=== PATIENT | female | born 1945 | race Caucasian/White ===

== ENCOUNTER 2017-08-30 07:32 | Outpatient (CLI) | payer MEDICARE, OTHER ==
[2017-08-30 10:35] LABS: BASOPHILS % (AUTO) 0.8 %; EOSINOPHILS # (AUTO) 0.2 10^3/uL (0.0-0.7); EOSINOPHILS % (AUTO) 3.3 %; HGB - HEMOGLOBIN 11.4 g/dL (12.0-16.0); LYMPHOCYTES # (AUTO) 1.1 10^3/uL (1.5-3.5); LYMPHOCYTES % (AUTO) 19.8 %; MEAN CORPUSCULAR HEMOGLOBIN 31.7 pg (27.0-31.0); MEAN CORPUSCULAR HGB CONC 33.8 g/dL (32.0-36.0); MEAN CORPUSCULAR VOLUME 93.7 fL (81.0-99.0); MEAN PLATELET VOLUME 9.8 fL (7.9-10.8); MONOCYTES # (AUTO) 0.4 10^3/uL (0.0-1.0); MONOCYTES % (AUTO) 7.6 %; NEUTROPHILS # (AUTO) 3.6 10^3/uL (1.5-6.6); NEUTROPHILS % (AUTO) 68.5 %; PLT - PLATELET COUNT 171 10^3/uL (130-450); RED CELL DISTRIBUTION WIDTH 13.2 % (12.0-15.0); WHITE BLOOD COUNT 5.3 x10^3/uL (4.8-10.8)
[2017-08-30 11:08] LABS: ALBUMIN 3.5 g/dL (3.2-5.5); ALBUMIN/GLOBULIN RATIO 1.3 (1.0-2.2); ALKALINE PHOSPHATASE 40 IU/L (42-121); ALT ALANINE AMINOTRANSFERASE 11 IU/L (10-60); AST ASPARTATE AMINOTRANSFERASE 14 IU/L (10-42); BILIRUBIN,TOTAL 0.7 mg/dL (0.2-1.0); BUN - BLOOD UREA NITROGEN 27 mg/dL (6-20); CALCIUM 9.1 mg/dL (8.5-10.3); CARBON DIOXIDE - CO2 27 mmol/L (21-32); CHLORIDE 104 mmol/L (101-111); CHOL/HDL RATIO 3.4 (<4.4); CHOLESTEROL 157 mg/dL; CREATININE 1.1 mg/dL (0.4-1.0); GFR - MDRD 49 (>89); GLUCOSE 131 mg/dL (70-100); HDL CHOLESTEROL 46 mg/dL; LDL CHOLESTEROL,CALCULATED 98 mg/dL; LDL/HDL RATIO 2.1 (<4.4); SODIUM 139 mmol/L (135-145); TOTAL PROTEIN 6.3 g/dL (6.7-8.2); VLDL CHOLESTEROL 13 mg/dL
[2017-08-30 11:17] LABS: HB2 TOTAL 12.1 g/dL; HEMOGLOBIN A1C 0.54 g/dL; HEMOGLOBIN A1C % 6.2 % (4.6-6.2)
== END 2017-08-30 07:33 | disposition home or self-care (01) ==
LOC: LAB.F 07:32
PROVIDERS: ATTEND Family Medicine
DX: E78.5 Hyperlipidemia, unspecified (principal); E11.9 Type 2 diabetes mellitus without complications; I10 Essential (primary) hypertension
CPT/HCPCS: 36415; 80053; 80061; 83036; 83721; 84443; 85025

== ENCOUNTER 2019-01-18 15:27 | Emergency (ER) | payer MEDICARE, OTHER ==
[2019-01-18 15:38] VITALS: BP 182/90
== END 2019-01-18 16:57 | disposition left against medical advice (07) ==
LOC: ED 15:27
DX: Z53.21 Procedure and treatment not carried out due to patient leaving prior to being seen by health care provider (principal)

== ENCOUNTER 2019-05-17 13:13 | Outpatient (CLI) | payer MEDICARE, OTHER ==
--- NOTE | 2019-05-18 16:48 | XRAY Report ---
Reason: Anesthesia of skin, Numbness of hand Procedure Date: 05/17/2019 Accession Number: [id number] / [id number] Procedure: XR - Shoulder 3 View RT CPT Code: Final Report FULL RESULT: EXAM: RIGHT SHOULDER RADIOGRAPHY EXAM DATE: 05/17/2019 01:35 PM. CLINICAL HISTORY: Neck and right shoulder pain with numbness in the right hand. COMPARISON: None. TECHNIQUE: 3 views. FINDINGS: Bones: No fracture seen. No acute osseous abnormality. Joints: No dislocation seen. Minimal degenerative changes in the glenohumeral joint. Soft tissues: Small amount of calcification in the distal supraspinatus tendon. IMPRESSION: 1. No acute abnormality seen in the shoulder. 2. Minimal degenerative changes. 3. Minimal calcific tendinitis in the rotator cuff. RADIA
--- NOTE | 2019-05-18 19:32 | XRAY Report ---
Reason: ANESTHESIA OF SKIN Procedure Date: 05/17/2019 Accession Number: [id number] / [id number] Procedure: XR - Cervical Spine 2 View CPT Code: Final Report FULL RESULT: EXAM: CERVICAL SPINE RADIOGRAPHY EXAM DATE: 05/17/2019 01:35 PM. CLINICAL HISTORY: Anesthesia of skin. Right shoulder pain with numbness in right hand. COMPARISONS: None. TECHNIQUE: 3 views. FINDINGS: Alignment: Mild degenerative anterolisthesis of C4 on C5 and C7 on T1. Bones: The cervical vertebral bodies and posterior elements are well visualized from the skull base through C7-T1. No fractures or bone lesions. Degenerative Changes: Severe disk level degenerative changes at C5-C6 and C6-C7 with disk height loss and osteophytosis. Severe diffuse facet DJD worst in the mid to upper cervical spine. Soft Tissues: Normal. No prevertebral soft tissue swelling. The visualized lung apices are clear. IMPRESSION: 1. Severe disk level degenerative changes at C5-C6 and C6-C7. 2. Severe diffuse facet DJD, worst in the mid to upper cervical spine RADIA
== END 2019-05-17 13:14 | disposition home or self-care (01) ==
LOC: DI 13:13
PROVIDERS: ATTEND Nurse Practitioner Family
DX: M19.011 Primary osteoarthritis, right shoulder (principal); M75.31 Calcific tendinitis of right shoulder; M50.322 Other cervical disc degeneration at C5-C6 level; M47.812 Spondylosis without myelopathy or radiculopathy, cervical region; M43.12 Spondylolisthesis, cervical region; M43.13 Spondylolisthesis, cervicothoracic region
CPT/HCPCS: 72040

== ENCOUNTER 2019-12-06 12:20 | Outpatient (CLI) | payer MEDICARE, OTHER ==
[2019-12-06 15:32] LABS: HGB - HEMOGLOBIN 13.6 g/dL (12.0-16.0)
[2019-12-06 15:43] LABS: ALBUMIN 4.1 g/dL (3.2-5.5); CALCIUM 9.3 mg/dL (8.5-10.3); CREATININE 1.2 mg/dL (0.4-1.0); PHOSPHORUS 3.6 mg/dL (2.5-4.6); PROTEIN/CREATININE RATIO,URINE 0.1 (<=0.2)
== END 2019-12-06 12:21 | disposition home or self-care (01) ==
LOC: LAB.S 12:20
PROVIDERS: ATTEND Internal Medicine Nephrology
DX: I12.9 Hypertensive chronic kidney disease with stage 1 through stage 4 chronic kidney disease, or unspecified chronic kidney disease (principal); N18.3 Chronic kidney disease, stage 3 (moderate); N39.0 Urinary tract infection, site not specified
CPT/HCPCS: 36415; 80069; 82570; 83970; 84156; 85014; 85018

== ENCOUNTER 2020-10-08 16:57 | Outpatient (CLI) | payer MEDICARE, OTHER ==
--- NOTE | 2020-10-08 17:42 | XRAY Report ---
PROCEDURE: Ribs w/PA Chest LT INDICATIONS: LEFT RIB PAIN TECHNIQUE: 3 views of the left ribs were acquired, along with a single view chest. COMPARISON: None. FINDINGS: Surgical changes and devices: Cholecystectomy clips. Bones and chest wall: No displaced left-sided rib fractures. Chronic appearing right posterior 7-8th rib fractures. No dislocation. No suspicious bony lesions. Overlying soft tissues appear unremarka ble. Lungs and pleura: No pleural effusions or pneumothorax. Lungs appear clear. Mediastinum: Mediastinal contours appear normal. Heart size is normal. Suspect prominent pericardia l fat pad. IMPRESSION: No displaced left-sided rib fracture. Chronic appearing right posterior 7-8th rib fractures. Reviewed by: Barry Villarreal MD on 10/08/2020 5:40 PM PDT Approved by: Barry Villarreal MD on 10/08/2020 5:40 PM PDT Station ID: [id number]
== END 2020-10-08 16:58 | disposition home or self-care (01) ==
LOC: DI.S 16:57
PROVIDERS: ATTEND Nurse Practitioner Family
DX: R07.81 Pleurodynia (principal); S22.32XA Fracture of one rib, left side, initial encounter for closed fracture

== ENCOUNTER 2020-12-24 07:49 | Outpatient (CLI) | payer MEDICARE, OTHER ==
[2020-12-24 15:26] LABS: ALBUMIN/GLOBULIN RATIO 1.7 (1.0-2.2); ALKALINE PHOSPHATASE 43 IU/L (42-121); ALT ALANINE AMINOTRANSFERASE 15 IU/L (10-60); AST ASPARTATE AMINOTRANSFERASE 17 IU/L (10-42); BUN - BLOOD UREA NITROGEN 12 mg/dL (6-20); CALCIUM 8.9 mg/dL (8.5-10.3); CARBON DIOXIDE - CO2 30 mmol/L (21-32); CHLORIDE 96 mmol/L (101-111); CHOL/HDL RATIO 2.8 (<4.4); CHOLESTEROL 190 mg/dL; CREATININE 0.9 mg/dL (0.4-1.0); GFR - MDRD 61 (>89); GLUCOSE 132 mg/dL (70-100); HDL CHOLESTEROL 68 mg/dL; LDL CHOLESTEROL,CALCULATED 102 mg/dL; LDL/HDL RATIO 1.5 (<4.4); POTASSIUM 3.8 mmol/L (3.5-5.0); SODIUM 136 mmol/L (135-145); TOTAL PROTEIN 6.3 g/dL (6.7-8.2); TRIGLYCERIDES 99 mg/dL; VLDL CHOLESTEROL 20 mg/dL
[2020-12-24 15:28] LABS: CREATININE,URINE 16.4 mg/dL; MICROALBUM/CREATININE RATIO,UR 12.2 ug/mg (<30.0); MICROALBUMIN,URINE 0.2 mg/dL (0-300.0)
[2020-12-24 20:03] LABS: ESTIMATED AVERAGE GLUCOSE 128 mg/dL (70-100); HEMOGLOBIN A1c% 6.1 % (4.27-6.07)
== END 2020-12-24 07:50 | disposition home or self-care (01) ==
LOC: LAB.S 07:49
PROVIDERS: ATTEND Family Medicine
DX: I10 Essential (primary) hypertension (principal); E11.9 Type 2 diabetes mellitus without complications; E78.2 Mixed hyperlipidemia; E03.9 Hypothyroidism, unspecified
CPT/HCPCS: 36415; 80053; 80061; 82043; 82570; 83036; 83721; 84443

== ENCOUNTER 2021-02-01 10:43 | Outpatient (CLI) | payer MEDICARE, OTHER ==
[2021-02-01 15:29] LABS: CALCIUM 9.1 mg/dL (8.5-10.3); CREATININE 1.1 mg/dL (0.4-1.0); POTASSIUM 3.3 mmol/L (3.5-5.0)
== END 2021-02-01 10:44 | disposition home or self-care (01) ==
LOC: LAB.S 10:43
PROVIDERS: ATTEND Internal Medicine
DX: I10 Essential (primary) hypertension (principal)
CPT/HCPCS: 36415; 80048

== ENCOUNTER 2021-03-19 09:49 | Outpatient (CLI) | payer MEDICARE, OTHER ==
[2021-03-19 15:09] LABS: ALBUMIN 4.1 g/dL (3.2-5.5); CALCIUM 9.7 mg/dL (8.5-10.3); CREATININE 1.1 mg/dL (0.4-1.0); PHOSPHORUS 3.3 mg/dL (2.5-4.6); POTASSIUM 3.9 mmol/L (3.5-5.0)
[2021-03-19 15:27] LABS: CREATININE,URINE 74.4 mg/dL; MICROALBUMIN,URINE 6.8 mg/dL (0-300.0); PROTEIN/CREATININE RATIO,URINE 0.2 (<=0.2)
== END 2021-03-19 09:50 | disposition home or self-care (01) ==
LOC: LAB.S 09:49
PROVIDERS: ATTEND Internal Medicine Nephrology
DX: N18.31 Chronic kidney disease, stage 3a (principal)
CPT/HCPCS: 36415; 80069; 82043; 82570; 84156

== ENCOUNTER 2021-12-07 08:11 | Outpatient (CLI) | payer MEDICARE, OTHER ==
[2021-12-07 14:29] LABS: ALBUMIN 3.9 g/dL (3.2-5.5); CALCIUM 9.5 mg/dL (8.5-10.3); CREATININE 1.3 mg/dL (0.4-1.0); CREATININE,URINE 128.1 mg/dL; PHOSPHORUS 3.1 mg/dL (2.5-4.6); POTASSIUM 3.7 mmol/L (3.5-5.0); PROTEIN/CREATININE RATIO,URINE 0.1 (<=0.2)
== END 2021-12-07 08:12 | disposition home or self-care (01) ==
LOC: LAB.S 08:11
PROVIDERS: ATTEND Internal Medicine Nephrology
DX: N18.31 Chronic kidney disease, stage 3a (principal)
CPT/HCPCS: 36415; 80069; 82570; 84156

== ENCOUNTER 2022-04-08 10:24 | Outpatient (CLI) | payer MEDICARE, OTHER ==
--- NOTE | 2022-04-08 14:15 | XRAY Report ---
PROCEDURE: Chest 2 View X-Ray INDICATIONS: COUGH TECHNIQUE: 2 view(s) of the chest. COMPARISON: Chest and rib radiographs 10/08/2020 FINDINGS: Surgical changes and devices: Abdominal right upper quadrant metal clips. Lungs and pleura: No pleural effusions or pneumothorax. Lungs are clear. Mediastinum: Mediastinal contours are normal. Heart size is normal. Bones and chest wall: No suspicious bony abnormalities. Soft tissues appear unremarkable. IMPRESSION: No acute cardiopulmonary abnormality. Reviewed by: Alvarez Wood MD on 04/08/2022 2:13 PM PDT Approved by: Alvarez Wood MD on 04/08/2022 2:13 PM PDT Station ID: [id number]
== END 2022-04-08 10:25 | disposition home or self-care (01) ==
LOC: DI.S 10:24
PROVIDERS: ATTEND Physician Assistant
DX: R05.9 Cough, unspecified (principal)

== ENCOUNTER 2022-10-25 07:29 | Outpatient (CLI) | payer MEDICARE, OTHER ==
[2022-10-25 15:03] LABS: ALBUMIN 3.5 g/dL (3.2-5.5); CREATININE 1.1 mg/dL (0.4-1.0); PHOSPHORUS 2.6 mg/dL (2.5-4.6); POTASSIUM 3.8 mmol/L (3.5-5.0)
[2022-10-25 15:12] LABS: CREATININE,URINE 27.8 mg/dL; PROTEIN/CREATININE RATIO,URINE 0.3 (<=0.2)
== END 2022-10-25 07:30 | disposition home or self-care (01) ==
LOC: LAB.S 07:29
PROVIDERS: ATTEND Internal Medicine Nephrology
DX: N18.31 Chronic kidney disease, stage 3a (principal)
CPT/HCPCS: 36415; 80069; 82570; 84156

== ENCOUNTER 2022-11-04 07:21 | Outpatient (CLI) | payer MEDICARE, OTHER ==
[2022-11-04 14:58] LABS: BASOPHILS # (AUTO) 0.1 10^3/uL (0.0-0.1); BASOPHILS % (AUTO) 1.1 %; EOSINOPHILS # (AUTO) 0.1 10^3/uL (0.0-0.7); EOSINOPHILS % (AUTO) 1.7 %; HCT - HEMATOCRIT 40.6 % (37.0-47.0); HGB - HEMOGLOBIN 12.9 g/dL (12.0-16.0); LYMPHOCYTES # (AUTO) 1.6 10^3/uL (1.5-3.5); LYMPHOCYTES % (AUTO) 29.8 %; MEAN CORPUSCULAR HEMOGLOBIN 30.6 pg (27.0-31.0); MEAN CORPUSCULAR HGB CONC 31.8 g/dL (32.0-36.0); MEAN CORPUSCULAR VOLUME 96.4 fL (81.0-99.0); MEAN PLATELET VOLUME 11.3 fL (7.9-10.8); MONOCYTES # (AUTO) 0.4 10^3/uL (0.0-1.0); MONOCYTES % (AUTO) 7.5 %; NEUTROPHILS # (AUTO) 3.2 10^3/uL (1.5-6.6); NEUTROPHILS % (AUTO) 59.5 %; PLT - PLATELET COUNT 241 10^3/uL (130-450); RED BLOOD COUNT 4.21 10^6/uL (4.20-5.40); RED CELL DISTRIBUTION WIDTH 13.5 % (12.0-15.0); WHITE BLOOD COUNT 5.3 x10^3/uL (4.8-10.8)
[2022-11-04 15:40] LABS: THYROID STIMULATING HORMONE 1.64 uIU/mL (0.34-5.60)
[2022-11-04 15:46] LABS: FERRITIN 17.7 ng/mL (11.0-306.8)
[2022-11-04 15:55] LABS: CREATININE,URINE 22.6 mg/dL; MICROALBUM/CREATININE RATIO,UR 39.8 ug/mg (<30.0); MICROALBUMIN,URINE 0.9 mg/dL (0-300.0)
[2022-11-04 16:19] LABS: ALBUMIN 3.8 g/dL (3.2-5.5); ALBUMIN/GLOBULIN RATIO 1.4 (1.0-2.2); ALKALINE PHOSPHATASE 45 IU/L (42-121); ALT ALANINE AMINOTRANSFERASE 11 IU/L (10-60); AST ASPARTATE AMINOTRANSFERASE 16 IU/L (10-42); BILIRUBIN,TOTAL 0.6 mg/dL (0.2-1.0); BUN - BLOOD UREA NITROGEN 21 mg/dL (6-20); CALCIUM 9.4 mg/dL (8.5-10.3); CARBON DIOXIDE - CO2 29 mmol/L (21-32); CHLORIDE 96 mmol/L (101-111); CHOL/HDL RATIO 3.5 (<4.4); CHOLESTEROL 234 mg/dL; GFR - MDRD 53 (>89); GLUCOSE 150 mg/dL (70-100); HDL CHOLESTEROL 66 mg/dL; LDL CHOLESTEROL,CALCULATED 150 mg/dL; LDL/HDL RATIO 2.3 (<4.4); POTASSIUM 3.9 mmol/L (3.5-5.0); SODIUM 134 mmol/L (135-145); TOTAL PROTEIN 6.6 g/dL (6.7-8.2); TRIGLYCERIDES 90 mg/dL; VLDL CHOLESTEROL 18 mg/dL
[2022-11-04 20:59] LABS: ESTIMATED AVERAGE GLUCOSE 151 mg/dL (70-100); HEMOGLOBIN A1c% 6.9 % (4.27-6.07)
== END 2022-11-04 07:22 | disposition home or self-care (01) ==
LOC: LAB.S 07:21
PROVIDERS: ATTEND Internal Medicine
DX: E11.9 Type 2 diabetes mellitus without complications (principal); Z79.899 Other long term (current) drug therapy
CPT/HCPCS: 36415; 80053; 80061; 82043; 82570; 82607; 82728; 83036; 83721; 84443; 85025

== ENCOUNTER 2023-02-15 07:58 | Outpatient (CLI) | payer MEDICARE, OTHER ==
[2023-02-15 15:50] LABS: ALBUMIN 4.3 g/dL (3.2-5.5); BILIRUBIN,TOTAL 0.7 mg/dL (0.2-1.0); CALCIUM 9.9 mg/dL (8.5-10.3); CREATININE 1.1 mg/dL (0.6-1.3); POTASSIUM 3.8 mmol/L (3.5-4.5); TOTAL PROTEIN 6.5 g/dL (6.4-8.9)
[2023-02-15 16:12] LABS: FERRITIN 14.3 ng/mL (11.0-306.8)
[2023-02-15 20:21] LABS: ESTIMATED AVERAGE GLUCOSE 143 mg/dL (70-100); HEMOGLOBIN A1c% 6.6 % (4.27-6.07)
== END 2023-02-15 07:59 | disposition home or self-care (01) ==
LOC: LAB.S 07:58
PROVIDERS: ATTEND Internal Medicine
DX: Z79.899 Other long term (current) drug therapy (principal); N81.85 Cervical stump prolapse; I49.3 Ventricular premature depolarization; E11.9 Type 2 diabetes mellitus without complications; Z78.0 Asymptomatic menopausal state; E78.5 Hyperlipidemia, unspecified; I10 Essential (primary) hypertension
CPT/HCPCS: 36415; 80053; 82728; 83036

== ENCOUNTER 2023-05-15 07:18 | Outpatient (CLI) | payer MEDICARE, OTHER ==
[2023-05-15 14:35] LABS: BASOPHILS # (AUTO) 0.1 10^3/uL (0.0-0.1); BASOPHILS % (AUTO) 0.7 %; EOSINOPHILS # (AUTO) 0.1 10^3/uL (0.0-0.7); EOSINOPHILS % (AUTO) 0.9 %; HCT - HEMATOCRIT 40.7 % (37.0-47.0); HGB - HEMOGLOBIN 12.7 g/dL (12.0-16.0); LYMPHOCYTES # (AUTO) 1.9 10^3/uL (1.5-3.5); LYMPHOCYTES % (AUTO) 27.6 %; MEAN CORPUSCULAR HEMOGLOBIN 31.2 pg (27.0-31.0); MEAN CORPUSCULAR HGB CONC 31.2 g/dL (32.0-36.0); MEAN PLATELET VOLUME 11.2 fL (7.9-10.8); MONOCYTES # (AUTO) 0.5 10^3/uL (0.0-1.0); MONOCYTES % (AUTO) 7.3 %; NEUTROPHILS # (AUTO) 4.3 10^3/uL (1.5-6.6); NEUTROPHILS % (AUTO) 63.2 %; PLT - PLATELET COUNT 200 10^3/uL (130-450); RED BLOOD COUNT 4.07 10^6/uL (4.20-5.40); RED CELL DISTRIBUTION WIDTH 13.9 % (12.0-15.0); WHITE BLOOD COUNT 6.7 x10^3/uL (4.8-10.8)
[2023-05-15 15:17] LABS: ALBUMIN 4.1 g/dL (3.2-5.5); CHOLESTEROL 193 mg/dL; HDL CHOLESTEROL 64 mg/dL; LDL CHOLESTEROL,CALCULATED 111 mg/dL; LDL/HDL RATIO 1.7 (<4.4); TRIGLYCERIDES 92 mg/dL (48-352); VLDL CHOLESTEROL 18 mg/dL
[2023-05-15 15:26] LABS: CREATININE,URINE 29.8 mg/dL; PROTEIN/CREATININE RATIO,URINE 0.5 (<=0.2)
[2023-05-15 15:26] LABS: CREATININE,URINE 29.8 mg/dL; MICROALBUM/CREATININE RATIO,UR 127.5 ug/mg (<30.0); MICROALBUMIN,URINE 3.8 mg/dL
[2023-05-15 15:33] LABS: ALBUMIN/GLOBULIN RATIO 2.2 (1.0-2.2); ALKALINE PHOSPHATASE 40 IU/L (42-121); ALT ALANINE AMINOTRANSFERASE 10 IU/L (10-60); AST ASPARTATE AMINOTRANSFERASE 15 IU/L (10-42); BILIRUBIN,TOTAL 0.6 mg/dL (0.2-1.0); BUN - BLOOD UREA NITROGEN 15 mg/dL (6-20); CALCIUM 9.2 mg/dL (8.5-10.3); CARBON DIOXIDE - CO2 26 mmol/L (21-32); CHLORIDE 105 mmol/L (101-111); CREATININE 1.1 mg/dL (0.6-1.3); GFR - MDRD 48 (>89); GLUCOSE 113 mg/dL (74-104); POTASSIUM 4.5 mmol/L (3.5-4.5); SODIUM 136 mmol/L (135-145)
[2023-05-15 21:21] LABS: ESTIMATED AVERAGE GLUCOSE 131 mg/dL (70-100); HEMOGLOBIN A1c% 6.2 % (4.27-6.07)
== END 2023-05-15 07:19 | disposition home or self-care (01) ==
LOC: LAB.S 07:18
PROVIDERS: ATTEND Internal Medicine
DX: I12.9 Hypertensive chronic kidney disease with stage 1 through stage 4 chronic kidney disease, or unspecified chronic kidney disease (principal); E11.22 Type 2 diabetes mellitus with diabetic chronic kidney disease; N18.31 Chronic kidney disease, stage 3a; E78.5 Hyperlipidemia, unspecified
CPT/HCPCS: 36415; 80053; 80061; 82043; 82570; 83036; 83721; 84100; 84156; 85025

== ENCOUNTER 2023-08-23 20:56 | Outpatient (CLI) | payer MEDICARE, OTHER | END 2023-08-23 20:57 | disposition critical access hospital (66) | LOC: EMS 20:56 | DX: R20.0 Anesthesia of skin (principal); H53.8 Other visual disturbances; R42 Dizziness and giddiness; R26.81 Unsteadiness on feet | CPT/HCPCS: A0425; A0427 ==

== ENCOUNTER 2023-08-23 21:33 | Inpatient (IN) | payer MEDICARE, OTHER ==
--- NOTE | 2023-08-23 21:44 | ED Physician Documentation ---
PD HPI FOCAL NEURO - Stated complaint Stated Complaint: L HAND NUMBNESS - Chief complaint Chief Complaint: Neuro - History obtained from History obtained from: Patient - Additional information Additional information: 78-year-old woman who is relatively healthy developed a bright lancinating vision in her right eye at 630 while sitting at her computer followed by numbness of the left hand. The brightness in her right eye was very fleeting but the numbness of her left hand continues but is improving. No history of stroke. No headache. Took 2 full size ASA at home. PD PAST MEDICAL HISTORY - Present Medications Home Medications: Ambulatory Orders Medication Instructions Recorded Confirmed Carisoprodol [Soma] 350 mg PO TID 08/23/23 08/23/23 Cholecalciferol [Vitamin D3] 1 cap PO DAILY 08/23/23 08/23/23 Empagliflozin [Jardiance] 10 mg PO DAILY 08/23/23 08/23/23 Famotidine 10 mg PO BID 08/23/23 08/23/23 Losartan [Cozaar] 50 mg PO BID 08/23/23 08/23/23 Metformin HCl [Metformin ER 500 mg PO BID 08/23/23 08/23/23 Osmotic] Omeprazole Magnesium [Prilosec] 10 mg PO DAILY 08/23/23 08/23/23 Vitamin K2 (Mk-4) [Vitamin K2 100 mcg PO DAILY 08/23/23 08/23/23 (Menaquinone-4)] - Allergies Allergies/Adverse Reactions: Allergies Allergy/AdvReac Type Severity Reaction Status Date / Time Penicillins Allergy Edema Verified 08/23/23 21:51 Sulfa (Sulfonamide Allergy Edema Verified 08/23/23 21:51 Antibiotics) PD ED PE NORMAL - Vitals Vital signs reviewed: Yes - General General: Alert and oriented X 3, No acute distress - HEENT HEENT: PERRL, EOMI - Neck Neck: Supple, no meningeal sign, No bony TTP - Cardiac Cardiac: RRR, No murmur - Respiratory Respiratory: No respiratory distress, Clear bilaterally - Abdomen Abdomen: Non tender - Derm Derm: No rash - Neuro Neuro: Alert and oriented X 3, No motor deficit, No sensory deficit, Normal speech, Other (She has mild numbness mostly in the ulnar distribution of the left hand but does also include the thumb. It is all on the palm. No numbness on the dorsum of the hand either side.) Eye Opening: Spontaneous Motor: Obeys Commands Verbal: Oriented GCS Score: 15 NIHSS - Time Time: 21:40 - Level of Consciousness Level of consciousness: (0) Alert, Keenly responsive LOC Questions: (0) Answers both Q's correct LOC Commands: (0) Performs both correctly - Gaze Best Gaze: (0) Normal - Visual Visual: (0) No loss - Facial Palsy Facial Palsy: (0) Normal, symmetrical movement - Motor Arms (both separate) Motor Arm (right): (0) No drift Motor Arm (left): (0) No drift - Motor Legs (both separate) Motor Leg (right): (0) No drift Motor Leg (left): (0) No drift - Limb Ataxia Limb Ataxia: (0) Absent - Sensory Sensory: (1) Dgdh-mx-fnoyepsp loss - Best Language Best Language: (0) No aphasia - Dysarthria Dysarthria: (0) Normal - Extinction and Inattention (formally neg Extinction and inattention: (0) No abnormality - Total Score/Results Total Score/Result: 1 Results - Vitals Vitals: Vital Signs - 24 hr 08/23/23 08/23/23 21:31 22:30 Temperature 36.0 C L Heart Rate 70 75 Respiratory 16 18 Rate Blood Pressure 176/71 H 162/80 H O2 Saturation 100 99 Oxygen O2 Source Room air - EKG (time done) 2216 EKG releavant findings:: EKG personally interpreted by author of this note. Relevant findings are: Rate: Rate (enter#) (75) Rhythm: NSR [place]: Normal QRS: Low voltage Ischemia: Non specific changes Computer interpretation: Agree with computer - Labs Labs: Laboratory Tests 08/23/23 08/23/23 08/23/23 21:45 22:15 22:15 WBC 5.6 RBC 4.61 Hgb 13.9 Hct 43.5 MCV 94.4 MCH 30.2 MCHC 32.0 RDW 12.9 Plt Count 154 MPV 11.5 H Neut # (Auto) 3.0 Lymph # (Auto) 2.0 [place] # (Auto) 0.5 Eos # (Auto) 0.1 Baso # (Auto) 0.0 Absolute Nucleated RBC 0.00 Nucleated RBC % 0.0 PT 9.7 L INR 0.9 Sodium 136 Potassium 4.3 Chloride 102 Carbon Dioxide 27 Anion Gap 7.0 BUN 17 Creatinine 1.1 Estimated GFR (MDRD) 48 L Glucose 142 H Calcium 9.7 Total Bilirubin 0.4 AST 18 ALT 10 Alkaline Phosphatase 47 Total Protein 6.6 Albumin 4.2 Globulin 2.4 Albumin/Globulin Ratio 1.8 Lipase 47 PD Medical Decision Making - ED course ED course: Spoke with Dr Garcia telestroke at 9:57pm agrees with usual stroke w/u, but given v mild sx and improvement, no tnk. Subsequently he did call me back and has looked at the angiography images and the patient does have severe right carotid disease. Recommended dual antiplatelet therapy, noting she had aspirin at home and I loaded her with 300 mg of Plavix. He also recommends permissive hypertension and some gentle hydration. I queried if she needed urgent surgery on her carotid and he said no. He recommended admission here for MRI and observation and I noted in our di scussion that we do not have vascular and he was okay with that. He said urgent surgery is not indicated but she does need to follow-up closely with vascular surgery after discharge. Telehealth consultation placed at 10:[address] Ac for observation at 10:52 PM. Departure - Departure Disposition: ED Place in Observation Clinical Impression: Stroke-like symptoms Condition: Serious Forms: PCP List
[2023-08-23 21:55] LABS: BASOPHILS % (AUTO) 0.7 %; EOSINOPHILS # (AUTO) 0.1 10^3/uL (0.0-0.7); EOSINOPHILS % (AUTO) 1.4 %; HCT - HEMATOCRIT 43.5 % (37.0-47.0); HGB - HEMOGLOBIN 13.9 g/dL (12.0-16.0); LYMPHOCYTES % (AUTO) 35.9 %; MEAN CORPUSCULAR HEMOGLOBIN 30.2 pg (27.0-31.0); MEAN CORPUSCULAR VOLUME 94.4 fL (81.0-99.0); MEAN PLATELET VOLUME 11.5 fL (7.9-10.8); MONOCYTES # (AUTO) 0.5 10^3/uL (0.0-1.0); MONOCYTES % (AUTO) 8.7 %; NEUTROPHILS % (AUTO) 52.9 %; PLT - PLATELET COUNT 154 10^3/uL (130-450); RED BLOOD COUNT 4.61 10^6/uL (4.20-5.40); RED CELL DISTRIBUTION WIDTH 12.9 % (12.0-15.0); WHITE BLOOD COUNT 5.6 x10^3/uL (4.8-10.8)
[2023-08-23] MEDS: iohexoL-300 100 ML VIAL IVP ONE (22:13)
--- NOTE | 2023-08-23 22:29 | CT Report ---
PROCEDURE: Head W/O Stroke Protocol INDICATIONS: Neuro deficit, acute, stroke suspected TECHNIQUE: Noncontrast 4.5 mm thick angled axial sections acquired from the foramen magnum to the vertex, with c oronal reformats. For radiation dose reduction, the following was used: automated exposure control, adjustment of mA and/or kV according to patient size. COMPARISON: None. FINDINGS: Image quality: Excellent. CSF spaces: Basal cisterns are patent. No extra-axial fluid collections. Ventricles are normal in size and shape. Brain: No midline shift. No intracranial masses or hemorrhage. Pedersen-white matter interface is norm al. Skull and face: Calvarium and visualized facial bones are intact, without suspicious lesions. Sinuses: Visualized sinuses and mastoids are clear. IMPRESSION: No acute intracranial abnormality. Findings were discussed with the referring physician, Dr. Medina, by telephone on 08/23/2023 at 10:27 PM. This study fulfills neurological imaging criteria for inclusion or exclusion of acute stroke therapie s based on available published neurological imaging guidelines. Reviewed by: Alvarez Sotomayor MD on 08/23/2023 10:27 PM PDT Approved by: Alvarez Sotomayor MD on 08/23/2023 10:27 PM PDT Station ID: [id number]
[2023-08-23 22:30] LABS: INR 0.9 (0.8-1.2); PT - PROTHROMBIN TIME 9.7 secs (9.9-12.6)
[2023-08-23] MEDS: SODIUM CHLORIDE 0.9% 1,000 ML IV STA (22:39)
[2023-08-23] MEDS: CLOPIDOGREL 300 MG TABLET PO STA (22:39)
--- NOTE | 2023-08-23 22:43 | CT Report ---
PROCEDURE: Angio Head/Neck INDICATIONS: cva sx TECHNIQUE: After the administration of intravenous contrast, 1 mm thick sections acquired from the aortic arch t hrough the [place] of [place]. 3-dimensional encaiyu-wiyzmclmk-rwqumbhqst (MIP) and/or volume renderin g reformats were acquired of the central intracranial vasculature and neck separately. For radiation dose reduction, the following was used: automated exposure control, adjustment of mA and/or kV acco rding to patient size. CONTRAST: COMPARISON: None. FINDINGS: Image quality: Diagnostic. HEAD CT: CSF Spaces: Basal cisterns are patent. No extra-axial fluid collections. Ventricles are normal in size and shape. Brain: The brain is within normal limits for age and scanning technique. Skull and face: Calvarium and visualized facial bones appear intact, without suspicious lesions. Sinuses: Visualized sinuses and mastoids are clear. HEAD CT ANGIOGRAPHY: Anterior circulation: There is suspected occlusion of the cavernous segment of the left internal agrawal tid artery with reconstitution at the level of the ophthalmic artery origin due to collateral flow. T he left internal carotid artery demonstrates mild atherosclerotic calcifications without hemodynamica lly significant stenosis. The flow within the paired anterior cerebral arteries is normal and symmetr ic. The flow within the middle cerebral arteries is normal and symmetric. The anterior communicatin g artery is seen. No aneurysms are seen. Posterior circulation: Short segment of atherosclerotic plaque is seen at the intracranial portion of the right vertebral artery without hemodynamically significant stenosis. Visualized portions of the vertebral arteries demonstrate normal caliber, and join to form a normal appearing basilar artery. F low within the posterior cerebral arteries is normal and symmetric. No aneurysms are seen. NECK CT ANGIOGRAPHY: Carotid system: The great vessels demonstrate a conventional anatomy as they arise from the aortic a rch. The origins of the common carotid arteries appear patent. The common carotid arteries demonstr ate normal caliber and courses. Calcified and noncalcified atherosclerotic plaque is seen at the righ t carotid bifurcation with focal high-grade stenosis of the right internal carotid artery at the orig in. Left carotid bifurcation demonstrates mild atherosclerotic plaque without hemodynamically signifi cant stenosis. Posterior circulation: The origins of the vertebral arteries both appear widely patent. Mild narrowi ng of the left vertebral artery at the level of the C6 transverse foramen secondary to osteophyte for mation. The more superior extracranial portions of both vertebral arteries also demonstrate normal co urses and calibers. They join to form a normal appearing basilar artery. Soft tissues: Visualized neck soft tissues demonstrate no suspicious abnormalities. Bones: No suspicious bony lesions. Visualized cervical spine appears normally aligned. 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 There is distal contrast opacification related to the contralateral flow via a patent anterior com municating artery. 2.Focal greater than 70% stenosis at the right internal carotid artery at the origin. The estimate of stenosis included in the report of the imaging study was calculated using the NASCET method Reviewed by: Alvarez Sotomayor MD on 08/23/2023 10:42 PM PDT Approved by: Alvarez Sotomayor MD on 08/23/2023 10:42 PM PDT Station ID: [id number]
[2023-08-23 22:49] LABS: ALBUMIN 4.2 g/dL (3.2-5.5); ALBUMIN/GLOBULIN RATIO 1.8 (1.0-2.2); BILIRUBIN,TOTAL 0.4 mg/dL (0.2-1.0); CALCIUM 9.7 mg/dL (8.5-10.3); CREATININE 1.1 mg/dL (0.6-1.3); POTASSIUM 4.3 mmol/L (3.5-4.5); TOTAL PROTEIN 6.6 g/dL (6.4-8.9)
[2023-08-23] MEDS ORDERED: SODIUM CHLORIDE FLUSH 0.9% 10 ML SYRINGE IVP PRN (22:52)
[2023-08-23] MEDS: ONDANSETRON 4 MG/2 ML VIAL IVP PRN (23:17)
--- NOTE | 2023-08-23 23:22 | HISTORY & PHYSICAL EXAMINATION ---
Chief Complaint - Chief Complaint Chief Complaint: Numbness in left arm History of Present Illness - History of Present Illness HPI Comment/Other: 78 Y old female with PMH HTN, DM 2, BIBA due to symptoms of flashing light in right eye and numbness in left arm which started about 5: 30 pm. Denies weakness, RUELAS, slurred speech, aphasia, urinary or fecal incontinence, or seizure like activity. On presentation, pt was afebrile and hypertensive Labs showed normal WBC CT head showed no acute intracranial abnormalities CTA neck showed occlusion of right carotid artery As per ER physician, Stroke alert was called. Pt is not TPA candidate. 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 HEENT: reports: Tonsil/Adenoidectomy - POLST Patient has POLST: No Meds/Allgy - Home Medications Home Medications: Ambulatory Orders Medication Instructions Recorded Confirmed Carisoprodol [Soma] 350 mg PO TID 08/23/23 08/23/23 Cholecalciferol [Vitamin D3] 1 cap PO DAILY 08/23/23 08/23/23 Empagliflozin [Jardiance] 10 mg PO DAILY 08/23/23 08/23/23 Famotidine 10 mg PO BID 08/23/23 08/23/23 Losartan [Cozaar] 50 mg PO BID 08/23/23 08/23/23 Metformin HCl [Metformin ER 500 mg PO BID 08/23/23 08/23/23 Osmotic] Omeprazole Magnesium [Prilosec] 10 mg PO DAILY 08/23/23 08/23/23 Vitamin K2 (Mk-4) [Vitamin K2 100 mcg PO DAILY 08/23/23 08/23/23 (Menaquinone-4)] - Allergies Allergies/Adverse Reactions: Allergies Allergy/AdvReac Type Severity Reaction Status Date / Time Penicillins Allergy Edema Verified 08/23/23 21:51 Sulfa (Sulfonamide Allergy Edema Verified 08/23/23 21:51 Antibiotics) Review of Systems - Other Findings Other Findings: 10 point systems were reviewed and were negative except mentioned in HPI Exam - Vital Signs Vital Signs: Vital Signs x48h Temp Pulse Resp BP Pulse Ox 08/23/23 22:30 75 18 162/80 H 99 08/23/23 21:31 36.0 C L 70 16 176/71 H 100 - Physical Exam General Appearance: positive: No acute distress Eyes Bilateral: positive: Normal inspection ENT: positive: ENT inspection nml Neck: positive: Nml inspection Respiratory: positive: Chest non-tender, Breath sounds nml Cardiovascular: positive: Regular rate & rhythm Abdomen: positive: Non-tender, Nml bowel sounds Skin: positive: No rash Extremities: positive: No pedal edema Neurologic/Psychiatric: positive: Oriented x3, Motor nml Conclusion/Plan - Lab Results Fish Bones: 08/23/23 21:45 08/23/23 22:15 - Other Other Results/Comments: A: TIA/ CVA Occlusion of right carotid artery HTN DM2 Hyperlipidemia Plan; Admit in tele Echo MRI brain WO contrast Start aspirin 325 mg po qd Plavix 75 mg po qd Lipitor 80 mg po qd Check fasting lipid panel NPO ST/PT/OT Allow permissive BP per neuro Tele neuro rec outpatient follow up with vascular surgery Hold metformin Start sliding scale insulin DVT prophylaxic: SCD Full code Pt is admitted as inpateint as more than 2 midnight stay is expacted
[2023-08-24] MEDS: SODIUM CHLORIDE FLUSH 0.9% 10 ML SYRINGE IVP SCH (01:18)
[2023-08-24] MEDS: INSULIN REGULAR HUMAN 300 UNIT/3 ML VIAL SUBQ SCH (01:19)
[2023-08-24 06:39] LABS: CHOL/HDL RATIO 2.8 (<4.4); CHOLESTEROL 175 mg/dL; HDL CHOLESTEROL 62 mg/dL; LDL CHOLESTEROL,CALCULATED 100 mg/dL; LDL/HDL RATIO 1.6 (<4.4); TRIGLYCERIDES 65 mg/dL (48-352); VLDL CHOLESTEROL 13 mg/dL
[2023-08-24] MEDS: ATORVASTATIN 40 MG TABLET PO SCH (08:56)
[2023-08-24] MEDS: CLOPIDOGREL 75 MG TABLET PO SCH (08:56)
[2023-08-24] MEDS: ASPIRIN 325 MG TABLET PO SCH (08:56)
[2023-08-24] MEDS: ACETAMINOPHEN 325 MG TABLET PO PRN (10:04)
--- NOTE | 2023-08-24 10:30 | MRI Report ---
PROCEDURE: Brain WO INDICATIONS: cva TECHNIQUE: Noncontrast axial T1 spin echo, axial T2 fast spin echo, sagittal and axial FLAIR, coronal T2 fast sp in echo, axial gradient echo, axial diffusion and ADC through the brain. COMPARISON: CTA 08/22/2022. FINDINGS: Image quality: Excellent. CSF Spaces: Basal cisterns are patent. No extra-axial fluid collections. Ventricles are normal in size and shape. Brain: No intracranial masses or hemorrhage. Pedersen/white matter interface is normal. Brainstem appe ars normal. Scattered regions of restricted diffusion within the right cerebral tissue, best apprecia ruiz on diffusion series 12. This includes the anterior right frontal lobe, right parietal lobe, right temporal lobe and right occipital lobe. There is very mild T2 hyperintense signal corresponding to these regions. Normal intravascular flow voids are present. Skull and face: Calvarium has normal marrow signal. Orbits appear normal. Sinuses: Sinuses and mastoids are clear. IMPRESSION: Late acute, multifocal infarct of the right cerebral tissue. Findings favor embolic etiology. Reviewed by: Nate Ureña MD on 08/24/2023 10:29 AM PDT Approved by: Nate Ureña MD on 08/24/2023 10:29 AM PDT Station ID: [id number]
--- NOTE | 2023-08-24 14:38 | DISCHARGE SUMMARY ---
"Discharge Summary Admit Date: 08/23/23 Discharge Date: 08/24/23 Discharging Provider: Zulema Quinn MD Primary Care Provider: Nelly Bangura MD Code Status: Attempt Resuscitation Condition at Discharge: Serious Discharge Disposition: 02 Transfer Acute Care Hosp - DIAGNOSES Discharge Diagnoses with Status of Each Condition: 1. Multiple embolic strokes, right brain 2. Carotid stenosis 3. Hypertension 4. Type 2 diabetes mellitus 5. GERD 6. Chronic kidney disease - HPI History of Present Illness: 78 Y old female with PMH HTN, DM 2, BIBA due to symptoms of flashing light in right eye and numbness in left arm which started about 5: 30 pm. Denies weakness, RUELAS, slurred speech, aphasia, urinary or fecal incontinence, or seizure like activity. On presentation, pt was afebrile and hypertensive Labs showed normal WBC CT head showed no acute intracranial abnormalities CTA neck showed occlusion of right carotid artery As per ER physician, Stroke alert was called. Pt is not TPA candidate. 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 Head CT without acute intracranial abnormality. 2. Angiography CT head the head with occlusion of the cavernous segment of the distal right internal carotid artery. Distal contrast opacification related to the contralateral flow via patent anterior communicating artery. Greater than 70% stenosis of the right internal carotid artery at the origin. 3. Brain MRI with multifocal infarcts of the right cerebral tissue involving anterior right frontal lobe, right parietal lobe, right temporal lobe, and right occipital lobe Echo with bubble study done. There is no preliminary report in the EMR yet. Echo is sent to [facility] cardiology. They will read the echo and submit it to us. - HOSPITAL COURSE Hospital Course: The patient had complete resolution of her symptoms which were minimal to begin with. The MRI report was startling at the amount of disease with the lack of symptomatology on the patient's part. She is ambulating in the room, without any assist. She is getting up to the bathroom on her own. Standing at the sink washing her hands. She is speaking normally. There is no ataxia, no facial droop, no dysesthesias. Is a very active lady. She still gardens, drives, takes care of her own house and bills, etc. Patient's best friend and son are at the bedside. I have shared with them the findings of the MRI and her angiography. I have spoken to [place] vascular group and they do feel the patient could warrant an evaluation. They asked the hospitalist group to admit. I then spoke to the hospitalist on-call for [facility] and has accepted the patient for transfer. She is transferred to [facility] in stable condition. Temperature is 37.1. Heart rate 67. Telemetry has not revealed any atrial fibrillation. Blood pressure 147/69. Respirations 18. 91% to 96% on room air. She is an alert oriented elderly female who looks younger than her stated age. She is 5 foot 3 inches tall, 75 kg. She has no facial asymmetry, no dysarthria, no dysphagia. Neck is supple. No bruit audible.Lungs are clear to auscultation and percussion. She has a regular rate and rhythm. No murmur. The abdomen is soft, nontender, normal bowel sounds, no masses. The extremities have no edema. This patient is able to go from supine to sitting, sitting to standing, and standing to ambulation without any assist. There is no ataxia. There is no focal loss of strength. There is no facial droop. Greater than 30 minutes was spent coordinating discharge between multiple calls to [facility], discussing the case with the family. Of note, her son Niranjan is her DPOA and POA. He is at the bedside. This document was made in part using voice recognition software. While efforts are made to proofread this document, sound alike and grammatical errors may occur. - ALLERGIES Allergies/Adverse Reactions: Allergies Allergy/AdvReac Type Severity Reaction Status Date / Time Penicillins Allergy Edema Verified 08/23/23 21:51 Sulfa (Sulfonamide Allergy Edema Verified 08/23/23 21:51 Antibiotics) - MEDICATIONS Home Medications: Ambulatory Orders Medication Instructions Recorded Confirmed Carisoprodol [Soma] 350 mg PO TID 08/23/23 Cholecalciferol [Vitamin D3] 1 cap PO DAILY 08/23/23 08/23/23 Empagliflozin [Jardiance] 10 mg PO DAILY 08/23/23 08/23/23 Famotidine 10 mg PO BID 08/23/23 08/23/23 Losartan [Cozaar] 50 mg PO BID 08/23/23 08/23/23 Metformin HCl [Metformin ER 500 mg PO BID 08/23/23 08/23/23 Osmotic] Omeprazole Magnesium [Prilosec] 10 mg PO DAILY 08/23/23 08/23/23 Vitamin K2 (Mk-4) [Vitamin K2 100 mcg PO DAILY 08/23/23 08/23/23 (Menaquinone-4)] - LABS Result Diagrams: 08/23/23 21:45 08/23/23 22:15"
[2023-08-24 15:23] VITALS: O2SAT 97
[2023-08-24 16:29] VITALS: BP 165/77
== END 2023-08-24 17:00 | disposition short-term general hospital (02) | DRG 66 ==
LOC: EDUNIT# → ED 21:33 → MS2 22:52
PROVIDERS: ADMIT Internal Medicine; ATTEND Specialist
DX: I63.40 Cerebral infarction due to embolism of unspecified cerebral artery (principal); R20.0 Anesthesia of skin; H53.9 Unspecified visual disturbance; R29.701 NIHSS score 1; I10 Essential (primary) hypertension; Z79.84 Long term (current) use of oral hypoglycemic drugs; I65.21 Occlusion and stenosis of right carotid artery; E78.5 Hyperlipidemia, unspecified; E11.22 Type 2 diabetes mellitus with diabetic chronic kidney disease; I12.9 Hypertensive chronic kidney disease with stage 1 through stage 4 chronic kidney disease, or unspecified chronic kidney disease; N18.9 Chronic kidney disease, unspecified
CPT/HCPCS: 36415; 70450; 70496; 70498; 70551; 80053; 80061; 83690; 85025; 85610; 93005; 93307; 99285; A9270; Q9967; 83721

== ENCOUNTER 2023-09-08 08:23 | Outpatient (CLI) | payer MEDICARE, OTHER ==
[2023-09-08 17:03] LABS: FERRITIN 59.6 ng/mL (11.0-306.8)
[2023-09-08 17:10] LABS: ALBUMIN 3.7 g/dL (3.2-5.5); ALBUMIN/GLOBULIN RATIO 1.5 (1.0-2.2); BILIRUBIN,TOTAL 0.5 mg/dL (0.2-1.0); CALCIUM 9.3 mg/dL (8.5-10.3); CREATININE 1.1 mg/dL (0.6-1.3); POTASSIUM 3.5 mmol/L (3.5-4.5); TOTAL PROTEIN 6.1 g/dL (6.4-8.9)
[2023-09-08 17:15] LABS: CREATININE,URINE 111.4 mg/dL; MICROALBUM/CREATININE RATIO,UR 9.9 ug/mg (<30.0); MICROALBUMIN,URINE 1.1 mg/dL
[2023-09-08 18:07] LABS: ESTIMATED AVERAGE GLUCOSE 120 mg/dL (70-100); HEMOGLOBIN A1c% 5.8 % (4.27-6.07)
== END 2023-09-08 08:24 | disposition home or self-care (01) ==
LOC: LAB.S 08:23
PROVIDERS: ATTEND Internal Medicine
DX: E78.5 Hyperlipidemia, unspecified (principal); I10 Essential (primary) hypertension; Z79.899 Other long term (current) drug therapy; E11.9 Type 2 diabetes mellitus without complications
CPT/HCPCS: 36415; 80053; 82043; 82570; 82728; 83036

== ENCOUNTER 2023-10-06 10:28 | Outpatient (CLI) | payer MEDICARE, OTHER ==
[2023-10-06 15:42] LABS: ALBUMIN 4.3 g/dL (3.2-5.5); ALBUMIN/GLOBULIN RATIO 2.2 (1.0-2.2); BILIRUBIN,TOTAL 0.7 mg/dL (0.2-1.0); CALCIUM 9.6 mg/dL (8.5-10.3); CREATININE 1.1 mg/dL (0.6-1.3); POTASSIUM 4.3 mmol/L (3.5-4.5); TOTAL PROTEIN 6.3 g/dL (6.4-8.9)
[2023-10-06 20:51] LABS: ESTIMATED AVERAGE GLUCOSE 128 mg/dL (70-100); HEMOGLOBIN A1c% 6.1 % (4.27-6.07)
== END 2023-10-06 10:29 | disposition home or self-care (01) ==
LOC: LAB.S 10:28
PROVIDERS: ATTEND Internal Medicine
DX: E11.22 Type 2 diabetes mellitus with diabetic chronic kidney disease (principal); N18.32 Chronic kidney disease, stage 3b; Z79.899 Other long term (current) drug therapy
CPT/HCPCS: 36415; 80053; 83036

== ENCOUNTER 2023-11-09 07:34 | Outpatient (CLI) | payer MEDICARE, OTHER ==
[2023-11-09 15:28] LABS: CALCIUM 9.2 mg/dL (8.5-10.3); CREATININE 1.2 mg/dL (0.6-1.3); PHOSPHORUS 4.1 mg/dL (2.5-5.0); POTASSIUM 4.7 mmol/L (3.5-4.5)
[2023-11-09 15:49] LABS: CREATININE,URINE 16.7 mg/dL; PROTEIN/CREATININE RATIO,URINE 0.4 (<=0.2)
== END 2023-11-09 07:35 | disposition home or self-care (01) ==
LOC: LAB.S 07:34
PROVIDERS: ATTEND Internal Medicine Nephrology
DX: N18.31 Chronic kidney disease, stage 3a (principal)
CPT/HCPCS: 36415; 80069; 82570; 84156

== ENCOUNTER 2024-01-08 12:12 | Outpatient (CLI) | payer MEDICARE, OTHER ==
[2024-01-08 15:07] LABS: BASOPHILS # (AUTO) 0.1 10^3/uL (0.0-0.1); BASOPHILS % (AUTO) 1.2 %; EOSINOPHILS # (AUTO) 0.2 10^3/uL (0.0-0.7); HCT - HEMATOCRIT 43.1 % (37.0-47.0); HGB - HEMOGLOBIN 13.6 g/dL (12.0-16.0); LYMPHOCYTES # (AUTO) 1.8 10^3/uL (1.5-3.5); LYMPHOCYTES % (AUTO) 31.3 %; MEAN CORPUSCULAR HEMOGLOBIN 30.6 pg (27.0-31.0); MEAN CORPUSCULAR HGB CONC 31.6 g/dL (32.0-36.0); MEAN CORPUSCULAR VOLUME 96.9 fL (81.0-99.0); MEAN PLATELET VOLUME 10.8 fL (7.9-10.8); MONOCYTES # (AUTO) 0.4 10^3/uL (0.0-1.0); MONOCYTES % (AUTO) 7.2 %; NEUTROPHILS # (AUTO) 3.2 10^3/uL (1.5-6.6); NEUTROPHILS % (AUTO) 56.9 %; PLT - PLATELET COUNT 192 10^3/uL (130-450); RED BLOOD COUNT 4.45 10^6/uL (4.20-5.40); RED CELL DISTRIBUTION WIDTH 12.7 % (12.0-15.0); WHITE BLOOD COUNT 5.7 x10^3/uL (4.8-10.8)
[2024-01-08 15:36] LABS: ESTIMATED AVERAGE GLUCOSE 143 mg/dL (70-100); HEMOGLOBIN A1c% 6.6 % (4.27-6.07)
[2024-01-08 15:45] LABS: % IRON SATURATION 19 % (20-50); ALBUMIN 4.2 g/dL (3.2-5.5); ALBUMIN/GLOBULIN RATIO 1.8 (1.0-2.2); ALKALINE PHOSPHATASE 69 IU/L (42-121); ALT ALANINE AMINOTRANSFERASE 14 IU/L (10-60); AST ASPARTATE AMINOTRANSFERASE 14 IU/L (10-42); BILIRUBIN,TOTAL 0.6 mg/dL (0.2-1.0); BUN - BLOOD UREA NITROGEN 22 mg/dL (6-20); CALCIUM 9.6 mg/dL (8.5-10.3); CARBON DIOXIDE - CO2 27 mmol/L (21-32); CHLORIDE 105 mmol/L (101-111); CHOL/HDL RATIO 2.6 (<4.4); CHOLESTEROL 170 mg/dL; CREATININE 1.2 mg/dL (0.6-1.3); GFR - MDRD 43 (>89); GLUCOSE 108 mg/dL (74-104); HDL CHOLESTEROL 66 mg/dL; IRON 70 ug/dL (50-212); LDL CHOLESTEROL,CALCULATED 88 mg/dL; LDL/HDL RATIO 1.3 (<4.4); POTASSIUM 4.5 mmol/L (3.5-4.5); SODIUM 138 mmol/L (135-145); TOTAL IRON BINDING CAPACITY 365 ug/dL (250-450); TOTAL PROTEIN 6.5 g/dL (6.4-8.9); TRANSFERRIN 261 mg/dL (203-362); TRIGLYCERIDES 80 mg/dL; VLDL CHOLESTEROL 16 mg/dL
[2024-01-08 15:47] LABS: THYROID STIMULATING HORMONE 1.17 uIU/mL (0.34-5.60)
[2024-01-08 15:50] LABS: CREATININE,URINE 38.4 mg/dL; FERRITIN 13.1 ng/mL (11.0-306.8); MICROALBUM/CREATININE RATIO,UR 57.3 ug/mg (<30.0); MICROALBUMIN,URINE 2.2 mg/dL
== END 2024-01-08 12:13 | disposition home or self-care (01) ==
LOC: LAB.S 12:12
PROVIDERS: ATTEND Internal Medicine
DX: I12.9 Hypertensive chronic kidney disease with stage 1 through stage 4 chronic kidney disease, or unspecified chronic kidney disease (principal); E11.22 Type 2 diabetes mellitus with diabetic chronic kidney disease; N18.32 Chronic kidney disease, stage 3b; Z79.899 Other long term (current) drug therapy; E78.5 Hyperlipidemia, unspecified
CPT/HCPCS: 36415; 80053; 80061; 82043; 82570; 82607; 82728; 83036; 83540; 83721; 84443; 84466; 85025